=== PATIENT | male | born 1970 | race Caucasian/White ===

== ENCOUNTER → 2017-05-07 | Outpatient (CLI) | payer BC ==
--- NOTE | 2017-05-07 12:27 | DIAGNOSTIC IMAGING REPORT ---
DOUBLE CONTRAST BARIUM ESOPHAGRAM CLINICAL HISTORY: Trouble swallowing. Heartburn. Family history of esophageal cancer. COMPARISON STUDY: No priors. TECHNIQUE: A standard air contrast barium esophagram is performed. Multiple spot images of the esophagus are acquired both upright and prone. FINDINGS: The patient swallowed barium and the barium pill without difficulty. There is questionable mild mucosal irregularity seen along the anterior aspect of the midesophagus. The mucosal pattern is otherwise normal. There is no clear evidence of intrinsic or extrinsic mass lesion. No aspiration was seen. The gastroesophageal junction distended normally. No gastroesophageal reflux could be elicited by having the patient perform the Valsalva maneuver. Fluoroscopy time: 1.1 minutes. Fluoroscopic images: 21 IMPRESSION: 1. There is questionable mucosal irregularity along the anterior aspect of the midesophagus. This is of indeterminant significance and may be artifactual. If there is clinical concern for a mucosal lesion then endoscopy should be considered. 2. No obvious mass lesion is seen Electronically signed by: Arsen Ballesteros M.D. 05/07/2017 12:26 PM Dictated Date/Time: 05/07/2017 12:23 PM
== END | disposition home or self-care (01) ==
LOC: C.RAD 11:35
PROVIDERS: ATTEND Physician Assistant
DX: R13.12 Dysphagia, oropharyngeal phase (principal)

== ENCOUNTER → 2017-07-20 | Day surgery (SDC) | payer BC ==
[2017-07-09 11:06] VITALS: Ht 175.3 cm; Wt 86.8 kg
[~2017-07-20] VITALS: Ht 175.3 cm; Wt 86.8 kg
[~2017-07-20] MED LIST: ATV/1 PO; BLAC1CAP4 PO; CHOL2000 PO; CYAN10005 PO; FENTANYL CITRATE INJ 50 MCG/1 ML 2 ML VIAL ONE; LIDOCAINE HCL 2% 2 ML VIAL (20MG/ML) ONE; MIDAZOLAM HCL 1 MG/ML 2ML VIAL ONE; MISC1CAP27 PO; PROPOFOL IV EMULSION 10 MG/ML 20 ML VIAL IV ONE; S-AD1TAB6 PO; SODIUM CHLORIDE 0.9% 500ML 500 ML IV ONE
--- NOTE | 2017-07-20 12:01 | Endo History and Physical ---
History & Physical Date of Service: Jul 20, 2017. Chief Complaint: DYSPHAGIA, ABNORMAL BARIUM SWALLOW Referring Physician: DR. DANIEL History of Present Illness 46 yo CM who presents for EGD secondary to dysphagia and abnormal barium swallow. Past Surgical History Hx Cardiac Surgery: No Hx Internal Defibrillator: No Hx Pacemaker: No Hx Abdominal Surgery: No Hx of Implantable Prosthesis: No Hx Post-Op Nausea and Vomiting: No Hx Cancer Surgery: No Hx Thoracic Surgery: No Hx Orthopedic: No Hx Urinary Tract Surgery: No Family History Esophogeal CA, Polyp Social History Smoking Status: Never Smoker Hx Substance Use: Yes (SEE MED LIST) Hx Alcohol Use: Yes (3 DRINKS/DAY) Allergies Coded Allergies: No Known Allergies (Verified , 07/20/17) Current Medications Reported Home Medications Medications Dose Route/Sig Max Daily Dose Days Date Category Triple Flex (Misc Natural Products) 1 Cap Cap 1 Cap PO DAILY 07/09/17 Reported Turmeric Curcumin Complex 500-3 mg (Black Pepper-Turmeric) 1 Cap Cap 1 Cap PO DAILY 07/09/17 Reported Vitamin D3 (Cholecalciferol) 2,000 Unit Cap 2,000 Units PO DAILY 07/09/17 Reported Clement E (S-Adenosylmethionine) 400 Mg Tab 400 Mg PO DAILY 07/09/17 Reported Vitamin B-12 (Cyanocobalamin) 1,000 Mcg Tab 1,000 Mcg PO DAILY 07/09/17 Reported Ativan (Lorazepam) 1 Mg Tab 1.5 Mg PO QAM 07/09/17 Reported Vital Signs Weight (Kilograms): 86.82 Height (Feet): 5 Height (Inches): 9 Date Time Temp Pulse Resp B/P (MAP) Pulse Ox O2 Delivery O2 Flow Rate FiO2 07/20/17 11:38 36.7 80 16 115/75 (88) 99 Room Air Physical Exam General Appearance: WD/WN, no apparent distress Respiratory/Chest: Auscultation: breath sounds normal Cardiovascular: Heart Auscultation: RRR Abdomen: Bowel Sounds: normal Inspection & Palpation: soft, non-distended, no tenderness, guarding & rebound Assessment and Plan Assessment: 46 yo CM who presents for EGD secondary to dysphagia and abnormal barium swallow. Plan: Proceed with EGD.
--- NOTE | 2017-07-20 12:38 | GI REPORT ---
Procedure Date: 07/20/2017 11:55 AM Procedure: Upper GI endoscopy Indications: Dysphagia, Abnormal cine-esophagram Medicines: Monitored Anesthesia Care Complications: No immediate complications. Estimated Blood Loss: Estimated blood loss: none. Procedure: Pre-Anesthesia Assessment: - Prior to the procedure, a History and Physical was performed, and patient medications and allergies were reviewed. The patient's tolerance of previous anesthesia was also reviewed. The risks and benefits of the procedure and the sedation options and risks were discussed with the patient. All questions were answered, and informed consent was obtained. Prior Anticoagulants: The patient has taken no previous anticoagulant or antiplatelet agents. ASA Grade Assessment: II - A patient with mild systemic disease. After reviewing the risks and benefits, the patient was deemed in satisfactory condition to undergo the procedure. After obtaining informed consent, the endoscope was passed under direct vision. Throughout the procedure, the patient's blood pressure, pulse, and oxygen saturations were monitored continuously. The scope was introduced through the mouth, and advanced to the second part of duodenum. The upper GI endoscopy was accomplished without difficulty. The patient tolerated the procedure well. Findings: The Z-line was irregular. Biopsies were taken with a cold forceps for histology. The stomach was normal. The examined duodenum was normal. Impression: - Z-line irregular. Biopsied. - Normal stomach. - Normal examined duodenum. Recommendation: - Resume previous diet. - Continue present medications. - Await pathology results. - Return to primary care physician as previously scheduled. Jac Renner, 07/20/2017 12:37:46 PM This report has been signed electronically. Note Initiated On: 07/20/2017 11:55 AM I attest to the content of the Intraoperative Record and orders documented therein, exceptions below
--- NOTE | 2017-07-20 12:46 | Discharge Instructions ---
Endoscopy Patient Instructions Date / Procedure(s) Performed Jul 20, 2017. EGD Allergy Information Coded Allergies: No Known Allergies (Verified , 07/20/17) Discharge Date / Findings Jul 20, 2017. Esophageal biopsies Medication Instructions OK to resume all medications today as prescribed Reported Home Medications Medications Dose Route/Sig Max Daily Dose Days Date Category Triple Flex (Misc Natural Products) 1 Cap Cap 1 Cap PO DAILY 07/09/17 Reported Turmeric Curcumin Complex 500-3 mg (Black Pepper-Turmeric) 1 Cap Cap 1 Cap PO DAILY 07/09/17 Reported Vitamin D3 (Cholecalciferol) 2,000 Unit Cap 2,000 Units PO DAILY 07/09/17 Reported Clement E (S-Adenosylmethionine) 400 Mg Tab 400 Mg PO DAILY 07/09/17 Reported Vitamin B-12 (Cyanocobalamin) 1,000 Mcg Tab 1,000 Mcg PO DAILY 07/09/17 Reported Ativan (Lorazepam) 1 Mg Tab 1.5 Mg PO QAM 07/09/17 Reported Provider Instructions Activity Restrictions - No exercising or heavy lifting for 24 hours. - Do not drink alcohol the day of the procedure. - Do not drive a car or operate machinery until the day after the procedure. - Do not make any important decisions or sign important papers in 24 hours after the procedure. Following Day: - Return to full activity which may include returning to work/school. Diet Start your diet with liquids and light foods (jello, soup, juice, toast). Then eat your usual diet if not nauseated. Treatment For Common After Affects For mild abdominal pain, bloating, or excessive gas: - Rest - Eat lightly - Lie on right side Follow-Up Information Follow-up with DR. DANIEL as scheduled Anesthesia Information What You Should Know You have had a procedure that required some medicine to reduce anxiety and discomfort. This treatment is called moderate sedation. After receiving the treatment, you may be sleepy, but you will be able to breathe on your own. The effects of the treatment may last for several hours. Follow these instructions along with Activity/Diet recommendations noted above: * Do NOT do anything where dizziness or clumsiness would be dangerous. * Rest quietly at home today, then you can be up and about tomorrow. * Have a responsible person stay with you the rest of today. * You may have had an I.V. today. If so, you may take the dressing off later today. Recommendations Call your doctor if: * Trouble breathing * Continuous vomiting for more than 24 hours * Temperature above 101 degrees * Severe abdominal pain or bloating * Pain not relieved by pain medicine ordered * There is increased drainage or redness from any incision * A large amount of rectal bleeding greater than 2-3 tablespoons. (If you had a polyp/s removed or have hemorrhoids, a small amount of blood - from the rectum is to be expected.) * You have any unanswered questions or concerns. IN THE EVENT OF A SERIOUS EMERGENCY, GO TO THE NEAREST EMERGENCY ROOM Your discharge instructions were prepared by provider Jac Renner. Patient Instructions Signature Page Jaycob Adams Patient (or Guardian) Signature/Date: I have read and understand the instructions given to me by my caregivers. Caregiver/RN/Doctor Signature/Date: The above-named patient and/or guardian has received patient instructions on this date. + Original Patient Signature Page (only) stays with chart. Please make copy for patient.
[2017-07-20 12:58] VITALS: BP 113/68; PULSE 80; O2SAT 98
--- NOTE | 2017-07-20 15:27 | Anesthesiology Progress Note ---
Anesthesia Post Op Note Date & Time Jul 20, 2017 at 15:27 Vital Signs Pain Intensity: 0 Vital Signs Past 12 Hours Date Time Temp Pulse Resp B/P (MAP) Pulse Ox O2 Delivery O2 Flow Rate FiO2 07/20/17 12:58 80 16 113/68 (83) 98 Room Air 07/20/17 12:45 72 16 115/70 (85) 97 Room Air 07/20/17 12:29 77 16 109/70 (83) 97 Room Air 07/20/17 11:38 36.7 80 16 115/75 (88) 99 Room Air Notes Mental Status: alert / awake / arousable, participated in evaluation Pt Amnestic to Procedure: Yes Nausea / Vomiting: adequately controlled Pain: adequately controlled Airway Patency, RR, SpO2: stable & adequate BP & HR: stable & adequate Hydration State: stable & adequate Anesthetic Complications: no major complications apparent
== END | disposition home or self-care (01) ==
LOC: C.GI 11:16
PROVIDERS: ATTEND Internal Medicine
DX: R13.10 Dysphagia, unspecified (principal); K21.9 Gastro-esophageal reflux disease without esophagitis; Z80.0 Family history of malignant neoplasm of digestive organs